=== PATIENT | male | born 1975 | race American Indian/Alaskan Native ===

== ENCOUNTER 2017-07-09 20:17 | Emergency (ER) | payer OTHER ==
[2017-07-09 20:49] VITALS: BP 132/84
[2017-07-09] MEDS ORDERED: ASPIRIN ONE (20:49)
[2017-07-09] MEDS ORDERED: ASPIRIN PO ONE (20:50)
[2017-07-09 21:19] LABS: Hemoglobin 12.5 gm/dl (11.8-15.2); Mean Corpuscular HGB Conc 34 % (32-34); Mean Corpuscular Hemoglobin 33 pg (28-32); Mean Corpuscular Volume 98 fl (84-94); Platelet Count 197 K/mm3 (140-440); Red Blood Count 3.76 M/mm3 (3.65-5.03); Red Cell Distribution Width 13.1 % (13.2-15.2)
[2017-07-09 21:38] LABS: BUN/Creatinine Ratio 13; Blood Urea Nitrogen 12 mg/dL (9-20); Calcium 9.2 mg/dL (8.4-10.2); Hemolysis Index 4
[2017-07-09 22:12] LABS: Basophils % (Manual) 0 % (0.0-1.8); Eosinophils % (Manual) 0 % (0.0-4.3); Platelet Estimate Consistent w Auto; Total Cells Counted 100
== END 2017-07-10 02:30 | disposition left against medical advice (07) ==
LOC: ED 20:17
DX: R07.89 Other chest pain (principal); Z53.21 Procedure and treatment not carried out due to patient leaving prior to being seen by health care provider
CPT/HCPCS: 36415; 80048; 84484; 85007; 85025; 93005; 93010

== ENCOUNTER 2019-12-29 10:05 | Emergency (ER) | payer OTHER ==
[2019-12-29 10:17] VITALS: BP 119/64
--- NOTE | 2019-12-29 10:48 | Event Note ---
ED Screening Note ED Screening Note: three days ago n/v/d upper abd pain no sick contacts no recent travel no recent abx no camping no water from different PMHx HIV on antivirals, states he is undetectable no allergies to meds This initial assessment/diagnostic orders/clinical plan/treatment(s) is/are subject to change based on patients health status, clinical progression and re- assessment by fellow clinical providers in the ED. Further treatment and workup at subsequent clinical providers discretion. Patient/guardian urged not to elope from the ED as their condition may be serious if not clinically assessed and managed. Initial orders include: labs
[2019-12-29 11:32] LABS: Hematocrit 39.6 % (35.5-45.6); Hemoglobin 13.8 gm/dl (11.8-15.2); Mean Corpuscular HGB Conc 35 % (32-34); Mean Corpuscular Volume 96 fl (84-94); Platelet Count 139 K/mm3 (140-440); Red Blood Count 4.14 M/mm3 (3.65-5.03); Red Cell Distribution Width 13.5 % (13.2-15.2)
[2019-12-29 11:53] LABS: Alanine Aminotransferase 12 units/L (7-56); Albumin 3.9 g/dL (3.9-5); BUN/Creatinine Ratio 16; Blood Urea Nitrogen 16 mg/dL (9-20); Calcium 9.5 mg/dL (8.4-10.2); Hemolysis Index 9
[2019-12-29 11:59] LABS: Bilirubin,Urine NEG (Negative); Blood,Urine MOD (Negative); Color,Urine Yellow (Yellow); Mucus,Urine FEW /HPF
[2019-12-29 12:09] LABS: Protein,Urine <30 mg dL mg/dL (Negative)
[2019-12-29] MEDS ORDERED: MORPHINE 4 MG/1 ML INJ IV ONE (12:13)
[2019-12-29] MEDS ORDERED: ONDANSETRON 4 MG/2 ML INJ IV ONE (12:13)
--- NOTE | 2019-12-29 12:15 | Emergency Department Report ---
ED Abdominal Pain HPI - General Chief Complaint: Abdominal Pain Stated Complaint: ABD PAIN Time Seen by Provider: 12/29/19 10:46 Source: patient Mode of arrival: Ambulatory Limitations: No Limitations - History of Present Illness Initial Comments: 44-year-old male with a past medical history of HIV presents to the ER today complaint of diffuse abdominal pain. Patient states that his symptoms started this past Friday. He described his pain as a constant crampy pain that's nonradiating. Patient states that the pain seems to be worse when he moves, but since they improve mildly when he lays supine. He reports associated nausea, he states that he has vomited about 3-4 times over the past 3 days. He also reports decreased appetite, and states that he has been having watery stools. He reports about 5 episodes of watery stools over the course of 3 days. He denies any fever but does report intermittent episodes of diaphoresis. He denies any cough, chest pain, shortness of breath, URI symptoms, or UTI symptoms. He denies similar symptoms in the past. He denies any history of abdominal surgeries. Patient states that he does not recall his last CD4 count, but he does report that his viral load was undetectable. He states that he has been compliant with his HIV medications and follow-ups with his ID specialist (Dr Nair). Complaint: abdominal pain -: Sudden (3 days ago ) Location: diffuse Radiation: none Migration to: no migration Severity: severe Severity scale (0 -10): 10 Quality: cramping Consistency: constant Improves With: other (Laying supine) Worsens With: movement Context: other (none) Associated Symptoms: nausea, vomiting, diarrhea - Related Data Home Medications Medication Instructions Recorded Confirmed Last Taken Emtricita/Rilpivirine/Tenof Df 1 each PO DAILY 11/05/13 11/05/13 Unknown [Complera Tablet] Previous Rx's Medication Instructions Recorded Last Taken Type Cyclobenzaprine [Flexeril 10mg] 10 mg PO TID PRN #14 tablet 11/05/13 Unknown Rx HYDROcodone/APAP 5-325 [[place] 1 each PO Q8HR PRN #14 tablet 11/05/13 Unknown Rx 5/325] methylPREDNISolone [Medrol Dose 4 mg PO DAILY #1 packet 11/05/13 Unknown Rx Juan J] Ondansetron [Zofran Odt] 4 mg SL Q6H PRN #8 tab.rapdis 03/01/14 Unknown Rx Ciprofloxacin HCl [Ciprofloxacin 500 mg PO Q12HR 10 Days #20 tab 12/29/19 Unknown Rx TAB] metroNIDAZOLE [Flagyl] 500 mg PO Q8HR #30 tab 12/29/19 Unknown Rx oxyCODONE /ACETAMINOPHEN [Percocet 1 tab PO Q4-6H PRN #25 tablet 12/29/19 Unknown Rx 5/325 mg] Allergies Allergy/AdvReac Type Severity Reaction Status Date / Time No Known Allergies Allergy Unverified 11/05/13 16:19 ED Review of Systems ROS: Stated complaint: ABD PAIN Other details as noted in HPI Comment: All other systems reviewed and negative Constitutional: denies: chills, fever Respiratory: denies: cough, shortness of breath, wheezing Cardiovascular: denies: chest pain, palpitations Gastrointestinal: abdominal pain, nausea, vomiting, diarrhea Genitourinary: denies: urgency, dysuria Musculoskeletal: denies: back pain, joint swelling, arthralgia Skin: denies: rash, lesions Neurological: denies: headache, weakness, paresthesias ED Past Medical Hx - Past Medical History Previous Medical History?: Yes Hx HIV: Yes - Social History Smoking Status: Never Smoker Substance Use Type: None - Medications Home Medications: Home Medications Medication Instructions Recorded Confirmed Last Taken Type Cyclobenzaprine [Flexeril 10mg] 10 mg PO TID PRN #14 tablet 11/05/13 Unknown Rx Emtricita/Rilpivirine/Tenof Df 1 each PO DAILY 11/05/13 11/05/13 Unknown History [Complera Tablet] HYDROcodone/APAP 5-325 [[place] 1 each PO Q8HR PRN #14 tablet 11/05/13 Unknown Rx 5/325] methylPREDNISolone [Medrol Dose 4 mg PO DAILY #1 packet 11/05/13 Unknown Rx Juan J] Ondansetron [Zofran Odt] 4 mg SL Q6H PRN #8 tab.rapdis 03/01/14 Unknown Rx Ciprofloxacin HCl [Ciprofloxacin 500 mg PO Q12HR 10 Days #20 tab 12/29/19 Unknown Rx TAB] metroNIDAZOLE [Flagyl] 500 mg PO Q8HR #30 tab 12/29/19 Unknown Rx oxyCODONE /ACETAMINOPHEN [Percocet 1 tab PO Q4-6H PRN #25 tablet 12/29/19 Unknown Rx 5/325 mg] ED Physical Exam - General Limitations: No Limitations General appearance: alert, in no apparent distress - Head Head exam: Present: atraumatic, normocephalic, normal inspection - Eye Eye exam: Present: normal appearance, PERRL, EOMI Pupils: Present: normal accommodation - ENT ENT exam: Present: normal exam, mucous membranes moist - Neck Neck exam: Present: normal inspection - Respiratory Respiratory exam: Absent: respiratory distress - Cardiovascular Cardiovascular Exam: Present: normal rhythm. Absent: regular rate - GI/Abdominal GI/Abdominal exam: Present: soft, tenderness (Moderate tenderness palpation to the left upper quadrant and left lower quadrant but with some mild guarding with the left lower quadrant. No apparent rebound. No distention. No mass or rigidity noted.). Absent: distended - Back Exam Back exam: Present: full ROM - Neurological Exam Neurological exam: Present: alert, oriented X3, CN II-XII intact - Psychiatric Psychiatric exam: Present: normal affect, normal mood - Skin Skin exam: Present: intact ED Course Vital Signs 12/29/19 10:16 Temperature 98.4 F Pulse Rate 94 H Respiratory 20 Rate Blood Pressure 119/64 [Right] O2 Sat by Pulse 99 Oximetry ED Medical Decision Making - Lab Data Result diagrams: 12/29/19 11:13 12/29/19 11:13 - Radiology Data Radiology results: report reviewed - Medical Decision Making 1643 -- Patient currently resting comfortably. Labs/CT reviewed. CT shows 1. Mural thickening and mucosal enhancement of the descending colon, most compatible with infectious or inflammatory colitis. 2. Mild wall thickening and mild inflammatory stranding involving the rectum, may represent component of proctitis. CBC shows nl wbc, cmp nl, ua nl, pt vs are stable including that he is afebrile. Pt does not appear toxic or ill appearing and currently not in any distress. Discussed results with patient. He report having seeing GI specialist at [facility] 3 years ago for colonoscopy because at that time he was having rectal bleeding. He states that his colonoscopy done was normal. At this time I believe we can try outpatient treatment with some antibiotics and outpatient referral to GI for colonoscopy. There is no indication for admission or emergent consult at this time. But I did discuss with patient that if he starts having fever, worsening abdominal pain worsening diarrhea and starts developing bloody stools needs to return to the ER immediately. Patient expressed understanding of instructions and agrees with plan. Patient was stable at time of discharge. Critical care attestation.: If time is entered above; I have spent that time in minutes in the direct care of this critically ill patient, excluding procedure time. ED Disposition Clinical Impression: Colitis Disposition: DC- TO HOME OR SELFCARE Is pt being admited?: No Does the pt Need Aspirin: No Condition: Stable Instructions: Colitis, Proctitis Additional Instructions: I recommend that you take the antibiotics as prescribed. Also take the pain medications as prescribed. I recommend that you follow up with GI specialist (the one you saw 3 yrs ago or the one given on d/c instructions) for further evaluation and possible colonoscopy. Return to ED if you develop fever, bloody or mucous stools, worsening abdominal pain. Prescriptions: Ciprofloxacin HCl [Ciprofloxacin TAB] 500 mg PO Q12HR 10 Days #20 tab metroNIDAZOLE [Flagyl] 500 mg PO Q8HR #30 tab oxyCODONE /ACETAMINOPHEN [Percocet 5/325 mg] 1 tab PO Q4-6H PRN #25 tablet PRN Reason: Pain Referrals: [facility] [Provider Group] - 3-5 Days Forms: Work/School Release Form(ED) Time of Disposition: 16:39
[2019-12-29 12:19] LABS: Total Cells Counted 100
[2019-12-29 12:21] LABS: Band Neutrophils # (Manual) 1.2 K/mm3; Basophils % (Manual) 0 % (0.0-1.8); Eosinophils % (Manual) 0 % (0.0-4.3)
[2019-12-29 12:22] LABS: Platelet Estimate Consistent w Auto; RBC Morphology Normal
[2019-12-29] MEDS ORDERED: metroNIDAZOLE 500 MG TAB PO ONE (16:40)
[2019-12-29] MEDS ORDERED: levoFLOXacin 750 MG TAB PO ONE (16:40)
[2019-12-29] MEDS ORDERED: oxyCODONE /ACETAMINOPHEN 5-325MG TAB PO PRN (16:40)
--- NOTE | 2019-12-31 12:04 | Cat Scan Report ---
CT ABDOMEN AND PELVIS WITH CONTRAST INDICATION / CLINICAL INFORMATION: Pain. TECHNIQUE: Axial CT images were obtained through the abdomen and pelvis after 100 mL of Omnipaque [address] scans at this location are performed using CT dose reduction for ALARA by means of automated exposure control. COMPARISON: 03/01/2014. FINDINGS: LOWER CHEST: Unremarkable LIVER: Small cyst seen near the hepatic dome. GALLBLADDER/BILIARY TREE: Unremarkable PANCREAS: Unremarkable SPLEEN: Unremarkable ADRENALS: Unremarkable KIDNEYS / URETER: Unremarkable URINARY BLADDER: Unremarkable REPRODUCTIVE ORGANS: Unremarkable STOMACH / SMALL BOWEL: Stomach and small bowel are normal in caliber. No evidence of bowel inflammati on. COLON: There is mural thickening and mucosal enhancement involving the descending colon, extending fr om the splenic flexure to the proximal sigmoid. There is also wall thickening of the rectum with julio cent inflammatory stranding. No evidence of obstruction. The appendix is normal in caliber. LYMPH NODES: No significant adenopathy. VASCULATURE: No significant abnormality. OTHER: No free air, free fluid, or focal fluid collection is identified. SKELETAL SYSTEM: No acute osseous findings. IMPRESSION: 1. Mural thickening and mucosal enhancement of the descending colon, most compatible with infectious or inflammatory colitis. 2. Mild wall thickening and mild inflammatory stranding involving the rectum, may represent component of proctitis. Signer Name: Pino Caro MD Signed: 12/29/2019 2:55 PM Workstation Name: [id number]
== END 2019-12-29 17:05 | disposition home or self-care (01) ==
LOC: ED 10:05
DX: K52.9 Noninfective gastroenteritis and colitis, unspecified (principal); Z79.2 Long term (current) use of antibiotics; Z79.899 Other long term (current) drug therapy; Z21 Asymptomatic human immunodeficiency virus [HIV] infection status
CPT/HCPCS: 36415; 74177; 80053; 81001; 83690; 85007; 85025; 96374; 96375; 99284; J2270; J2405; Q9967

== ENCOUNTER 2020-04-11 04:53 | Emergency (ER) | payer OTHER ==
[2020-04-11 06:31] LABS: Basophils % (Auto) 0.3 % (0.0-1.8); Eosinophils % (Auto) 0.8 % (0.0-4.3); Hematocrit 37.4 % (35.5-45.6); Hemoglobin 12.8 gm/dl (11.8-15.2); Lymphocytes # (Auto) 1.6 K/mm3 (1.2-5.4); Lymphocytes % (Auto) 41.5 % (13.4-35.0); Mean Corpuscular HGB Conc 34 % (32-34); Mean Corpuscular Volume 99 fl (84-94); Monocytes # (Auto) 0.4 K/mm3 (0.0-0.8); Monocytes % (Auto) 11.6 % (0.0-7.3); Platelet Count 163 K/mm3 (140-440); Red Blood Count 3.76 M/mm3 (3.65-5.03); Red Cell Distribution Width 13.2 % (13.2-15.2)
[2020-04-11 06:45] LABS: Alanine Aminotransferase 9 units/L (7-56); Albumin 4.4 g/dL (3.9-5); BUN/Creatinine Ratio 14; Blood Urea Nitrogen 14 mg/dL (9-20); Hemolysis Index 1
[2020-04-11] MEDS ORDERED: MECLIZINE 25 MG TAB PO ONE (08:55)
--- NOTE | 2020-04-11 08:56 | Emergency Department Report ---
ED Dizziness HPI - General Chief Complaint: Dizziness Stated Complaint: DIZZINESS/FEELING ILL Time Seen by Provider: 04/11/20 08:46 Source: patient Mode of arrival: Ambulatory Limitations: No Limitations - History of Present Illness Initial Comments: 44-year-old male with a past medical history of HIV with undetectable viral load presents to the hospital complains of feeling off balance x3 days. Patient feels like the room is spinning when he stands up or moves his head in either direction. He denies blurry vision, tinnitus, ear pain, chest pain, shortness of breath, headache, focal weakness, focal numbness, nausea, vomiting, or diarrhea. He is compliant with his antiretrovirals and denies any medication - Related Data Home Medications Medication Instructions Recorded Confirmed Last Taken Emtricita/Rilpivirine/Tenof Df 1 each PO DAILY 11/05/13 11/05/13 Unknown [Complera Tablet] Previous Rx's Medication Instructions Recorded Last Taken Type Cyclobenzaprine [Flexeril 10mg] 10 mg PO TID PRN #14 tablet 11/05/13 Unknown Rx HYDROcodone/APAP 5-325 [[place] 1 each PO Q8HR PRN #14 tablet 11/05/13 Unknown Rx 5/325] methylPREDNISolone [Medrol Dose 4 mg PO DAILY #1 packet 11/05/13 Unknown Rx Juan J] Ondansetron [Zofran Odt] 4 mg SL Q6H PRN #8 tab.rapdis 03/01/14 Unknown Rx Ciprofloxacin HCl [Ciprofloxacin 500 mg PO Q12HR 10 Days #20 tab 12/29/19 Unk nown Rx TAB] metroNIDAZOLE [Flagyl] 500 mg PO Q8HR #30 tab 12/29/19 Unknown Rx oxyCODONE /ACETAMINOPHEN [Percocet 1 tab PO Q4-6H PRN #25 tablet 12/29/19 Unknown Rx 5/325 mg] Meclizine [Antivert] 25 mg PO TID PRN #30 tablet 04/11/20 Unknown Rx Ondansetron [Zofran Odt] 4 mg PO Q8HR #20 tab.rapdis 04/11/20 Unknown Rx Allergies Allergy/AdvReac Type Severity Reaction Status Date / Time No Known Allergies Allergy Verified 04/11/20 05:05 ED Review of Systems ROS: Stated complaint: DIZZINESS/FEELING ILL Other details as noted in HPI Comment: All other systems reviewed and negative ED Past Medical Hx - Past Medical History Previous Medical History?: Yes Hx HIV: Yes - Surgical History Past Surgical History?: No - Social History Smoking Status: Current Every Day Smoker Substance Use Type: Alcohol, Marijuana - Medications Home Medications: Home Medications Medication Instructions Recorded Confirmed Last Taken Type Cyclobenzaprine [Flexeril 10mg] 10 mg PO TID PRN #14 tablet 11/05/13 Unknown Rx Emtricita/Rilpivirine/Tenof Df 1 each PO DAILY 11/05/13 11/05/13 Unknown History [Complera Tablet] HYDROcodone/APAP 5-325 [[place] 1 each PO Q8HR PRN #14 tablet 11/05/13 Unknown Rx 5/325] methylPREDNISolone [Medrol Dose 4 mg PO DAILY #1 packet 11/05/13 Unknown Rx Juan J] Ondansetron [Zofran Odt] 4 mg SL Q6H PRN #8 tab.rapdis 03/01/14 Unknown Rx Ciprofloxacin HCl [Ciprofloxacin 500 mg PO Q12HR 10 Days #20 tab 12/29/19 Unknown Rx TAB] metroNIDAZOLE [Flagyl] 500 mg PO Q8HR #30 tab 12/29/19 Unknown Rx oxyCODONE /ACETAMINOPHEN [Percocet 1 tab PO Q4-6H PRN #25 tablet 12/29/19 Unknown Rx 5/325 mg] Meclizine [Antivert] 25 mg PO TID PRN #30 tablet 04/11/20 Unknown Rx Ondansetron [Zofran Odt] 4 mg PO Q8HR #20 tab.rapdis 04/11/20 Unknown Rx ED Physical Exam - General Limitations: No Limitations - Other Other exam information: General: No acute distress Head: Atraumatic Eyes: normal appearance, no nystagmus, dizziness with lateral eye gaze ENT: Moist mucous membranes Neck: Normal appearance, no midline tenderness Chest: Clear to auscultation bilaterally CV: Regular rate and rhythm Abdomen: Soft, normal bowel sounds, nontender, nondistended, no rebound or guarding Back: Normal inspection Extremity: Normal inspection, full range of motion Neuro: Alert O x 3, no facial asymmetry, speech clear, no gross motor sensory deficit, [id number] function intact Psych: Appropriate behavior Skin: No rash ED Course Vital Signs 04/11/20 04/11/20 04/11/20 05:06 05:12 08:51 Temperature 97.8 F Pulse Rate 75 74 69 Respiratory 16 22 Rate Blood Pressure Blood Pressure [Left] Blood Pressure 141/94 [Right] O2 Sat by Pulse 95 98 Oximetry 04/11/20 04/11/20 04/11/20 09:01 09:15 09:21 Temperature Pulse Rate 63 62 Respiratory 10 L 8 L 18 Rate Blood Pressure Blood Pressure 130/85 [Left] Blood Pressure [Right] O2 Sat by Pulse 98 96 Oximetry 04/11/20 04/11/20 04/11/20 09:31 10:15 11:15 Temperature Pulse Rate 66 56 L 62 Respiratory 14 17 10 L Rate Blood Pressure 130/85 124/71 129/90 Blood Pressure [Left] Blood Pressure [Right] O2 Sat by Pulse 96 97 97 Oximetry 04/11/20 13:12 Temperature Pulse Rate 61 Respiratory 12 Rate Blood Pressure Blood Pressure 122/93 [Left] Blood Pressure [Right] O2 Sat by Pulse 100 Oximetry - Reevaluation(s) Reevaluation #1: 04/11/20 10:46 after meclizine 50 mg pt complains of persistent dizziness. CT head and IV fluids ordered ED Medical Decision Making - Lab Data Result diagrams: 04/11/20 05:25 04/11/20 05:25 Lab Results 04/11/20 04/11/20 04/11/20 Range/Units 05:25 05:25 05:25 WBC 3.8 L (4.5-11.0) K/mm3 RBC 3.76 (3.65-5.03) M/mm3 Hgb 12.8 (11.8-15.2) gm/dl Hct 37.4 (35.5-45.6) % MCV 99 H (84-94) fl MCH 34 H (28-32) pg MCHC 34 (32-34) % RDW 13.2 (13.2-15.2) % Plt Count 163 (140-440) K/mm3 Lymph % (Auto) 41.5 H (13.4-35.0) % [place] % (Auto) 11.6 H (0.0-7.3) % Eos % (Auto) 0.8 (0.0-4.3) % Baso % (Auto) 0.3 (0.0-1.8) % Lymph # (Auto) 1.6 (1.2-5.4) K/mm3 [place] # (Auto) 0.4 (0.0-0.8) K/mm3 Eos # (Auto) 0.0 (0.0-0.4) K/mm3 Baso # (Auto) 0.0 (0.0-0.1) K/mm3 Seg Neutrophils % 45.8 (40.0-70.0) % Seg Neutrophils # 1.8 (1.8-7.7) K/mm3 Sodium 139 (137-145) mmol/L Potassium 3.6 (3.6-5.0) mmol/L Chloride 106.4 (98-107) mmol/L Carbon Dioxide 24 (22-30) mmol/L Anion Gap 12 mmol/L BUN 14 (9-20) mg/dL Creatinine 1.0 (0.8-1.3) mg/dL Estimated GFR > 60 ml/min BUN/Creatinine Ratio 14 % Glucose 88 (75-100) mg/dL Calcium 9.0 (8.4-10.2) mg/dL Total Bilirubin 0.30 (0.1-1.2) mg/dL AST 18 (5-40) units/L ALT 9 (7-56) units/L Alkaline Phosphatase 60 (35-129) units/L Troponin T < 0.010 (0.00-0.029) ng/mL Total Protein 8.1 (6.3-8.2) g/dL Albumin 4.4 (3.9-5) g/dL Albumin/Globulin Ratio 1.2 % - EKG Data -: EKG Interpreted by Me EKG shows normal: sinus rhythm, ST-T waves (no stemi) Rate: normal (70) - Radiology Data Radiology results: report reviewed ct head:naf - Medical Decision Making Patient feels better after receiving meclizine and [address] head and labs unremarkable. Patient be discharged with diagnosis of vertigo and encouraged to follow-up and provided symptomatic treatment. Pt able to sit up and ambulate at time of discharge. Patient is on Biktarvy which does have the side effect of dizziness however pt has been on this med or quite sometime. I encouraged him to speak to his infectious disease doctor about Biktarvy because in his possible side effect. Critical Care Time: No Critical care attestation.: If time is entered above; I have spent that time in minutes in the direct care of this critically ill patient, excluding procedure time. ED Disposition Clinical Impression: Vertigo, HIV (human immunodeficiency virus infection) Disposition: DC-01 TO HOME OR SELFCARE Is pt being admited?: No Does the pt Need Aspirin: No Condition: Stable Instructions: Vertigo Additional Instructions: Take the medication as prescribed. Follow-up with your doctor or doctor/clinic provided. Return if symptoms worsen as indicated by your discharge instructions. Prescriptions: Meclizine [Antivert] 25 mg PO TID PRN #30 tablet PRN Reason: Vertigo Ondansetron [Zofran Odt] 4 mg PO Q8HR #20 tab.rapdis Referrals: MESERET SMALLS MD [Primary Care Provider] - 3-5 Days JANICE VAZQUEZ MD [Referring] - 3-5 Days (ENT ) LIV SHRESTHA MD [Staff Physician] - 3-5 Days (Primary care ) [facility] [Provider Group] - 3-5 Days (primary care clinic ) Time of Disposition: 13:50
[2020-04-11] MEDS ORDERED: SODIUM CHLORIDE 0.9% 1000 ML 1,000 ML IV ONE (10:46)
--- NOTE | 2020-04-11 11:48 | Cat Scan Report ---
CT HEAD WITHOUT CONTRAST INDICATION / CLINICAL INFORMATION: persitant dizziness. Syncope TECHNIQUE: Axial imaging performed from the skull apex through the skull base without the use of cont rast. Sagittal and coronal reformatted images. All CT scans at this location are performed using CT dose reduction for ALARA by means of automated exposure control. COMPARISON: None available. FINDINGS: CEREBRAL PARENCHYMA: No significant abnormality. No acute territorial infarct. HEMORRHAGE: None. EXTRA-AXIAL SPACES: Normal in size and morphology for the patient's age. VENTRICULAR SYSTEM: Normal in size and morphology for the patient's age. MIDLINE SHIFT OR HERNIATION: None. CEREBELLUM / BRAINSTEM: No significant abnormality. CALVARIUM: No significant abnormality. ORBITS: Normal as visualized. PARANASAL SINUSES / MASTOID AIR CELLS: Normal as visualized. SOFT TISSUES of HEAD: No significant abnormality. ADDITIONAL FINDINGS: None. IMPRESSION: No acute intracranial abnormality. Signer Name: Steven Barber Jr, MD Signed: 04/11/2020 11:34 AM Workstation Name: [id number]
[2020-04-11 13:14] VITALS: BP 122/93
== END 2020-04-11 14:46 | disposition home or self-care (01) ==
LOC: ED 04:53
DX: R42 Dizziness and giddiness (principal); B20 Human immunodeficiency virus [HIV] disease; F17.200 Nicotine dependence, unspecified, uncomplicated; F12.10 Cannabis abuse, uncomplicated; Z79.899 Other long term (current) drug therapy
CPT/HCPCS: 36415; 70450; 80053; 84484; 85025; 93005; 96360; 96361; 99284; J7030

== ENCOUNTER 2020-04-13 05:49 | Emergency (ER) | payer OTHER ==
--- NOTE | 2020-04-13 06:30 | Emergency Department Report ---
ED General Adult HPI - General Chief complaint: Dizziness Stated complaint: VERTIGO Time Seen by Provider: 04/13/20 06:08 Source: patient Mode of arrival: Ambulatory Limitations: No Limitations - History of Present Illness Initial comments: This is a 44-year-old male with a history of HIV who has stated he has a negative viral load and has been compliant with his at the retroviral therapy. He was seen and evaluated for dizziness now for 1 week duration and secondary difficulty in walking [address] Limon in this emergency department. Nothing specifically expected to have was found on his work-up. He was directed to follow-up with his infectious disease doctor in case his symptoms were medication related. He neglected to do so. To return to this emergency department with the same complaint. He is somewhat emotionally labile. He does not admit to a psychiatric history nor related medications. He does admit to marijuana and cocaine abuse. He only occasionally drinks alcohol on the weekends. Patient states that he has never been hospitalized for anything. He has never suffered a serious secondary infectious disease throughout his 15-year history of HIV he states. He denies any other ongoing medical problems. He denies any new medications. He denies any pain complaint. -: Gradual, week(s) Associated Symptoms: denies other symptoms, other (Denies loss of taste or smell ) Treatments Prior to Arrival: none (Meclizine) - Related Data Home Medications Medication Instructions Recorded Confirmed Last Taken Emtricita/Rilpivirine/Tenof Df 1 each PO DAILY 11/05/13 11/05/13 Unknown [Complera Tablet] Previous Rx's Medication Instructions Recorded Last Taken Type Cyclobenzaprine [Flexeril 10mg] 10 mg PO TID PRN #14 tablet 11/05/13 Unknown Rx HYDROcodone/APAP 5-325 [Louisa 1 each PO Q8HR PRN #14 tablet 11/05/13 Unknown Rx 5/325] methylPREDNISolone [Medrol Dose 4 mg PO DAILY #1 packet 11/05/13 Unknown Rx Ujan J] Ondansetron [Zofran Odt] 4 mg SL Q6H PRN #8 tab.rapdis 03/01/14 Unknown Rx Ciprofloxacin HCl [Ciprofloxacin 500 mg PO Q12HR 10 Days #20 tab 12/29/19 Unknown Rx TAB] metroNIDAZOLE [Flagyl] 500 mg PO Q8HR #30 tab 12/29/19 Unknown Rx oxyCODONE /ACETAMINOPHEN [Percocet 1 tab PO Q4-6H PRN #25 tablet 12/29/19 Unknown Rx 5/325 mg] Meclizine [Antivert] 25 mg PO TID PRN #30 tablet 04/11/20 Unknown Rx Ondansetron [Zofran Odt] 4 mg PO Q8HR #20 tab.rapdis 04/11/20 Unknown Rx Allergies Allergy/AdvReac Type Severity Reaction Status Date / Time No Known Allergies Allergy Verified 04/11/20 05:05 ED Review of Systems ROS: Stated complaint: VERTIGO Other details as noted in HPI Constitutional: denies: chills, fever Eyes: denies: eye pain, vision change ENT: denies: ear pain, throat pain Respiratory: denies: cough, shortness of breath, wheezing Cardiovascular: denies: chest pain, palpitations Endocrine: no symptoms reported Gastrointestinal: denies: abdominal pain, nausea, diarrhea Genitourinary: denies: urgency, dysuria Musculoskeletal: denies: back pain, arthralgia Skin: denies: rash, lesions Neurological: denies: headache, weakness, paresthesias Psychiatric: denies: anxiety, depression Hematological/Lymphatic: denies: easy bleeding, easy bruising ED Past Medical Hx - Past Medical History Previous Medical History?: Yes Hx HIV: Yes Additional medical history: Vertigo - Social History Smoking Status: Current Every Day Smoker Substance Use Type: Cocaine, Marijuana - Medications Home Medications: Home Medications Medication Instructions Recorded Confirmed Last Taken Type Cyclobenzaprine [Flexeril 10mg] 10 mg PO TID PRN #14 tablet 11/05/13 Unknown Rx Emtricita/Rilpivirine/Tenof Df 1 each PO DAILY 11/05/13 11/05/13 Unknown History [Complera Tablet] HYDROcodone/APAP 5-325 [[place] 1 each PO Q8HR PRN #14 tablet 11/05/13 Unknown Rx 5/325] methylPREDNISolone [Medrol Dose 4 mg PO DAILY #1 packet 11/05/13 Unknown Rx Juan J] Ondansetron [Zofran Odt] 4 mg SL Q6H PRN #8 tab.rapdis 03/01/14 Unknown Rx Ciprofloxacin HCl [Ciprofloxacin 500 mg PO Q12HR 10 Days #20 tab 12/29/19 Unknown Rx TAB] metroNIDAZOLE [Flagyl] 500 mg PO Q8HR #30 tab 12/29/19 Unknown Rx oxyCODONE /ACETAMINOPHEN [Percocet 1 tab PO Q4-6H PRN #25 tablet 12/29/19 Unknown Rx 5/325 mg] Meclizine [Antivert] 25 mg PO TID PRN #30 tablet 04/11/20 Unknown Rx Ondansetron [Zofran Odt] 4 mg PO Q8HR #20 tab.rapdis 04/11/20 Unknown Rx ED Physical Exam - General Limitations: No Limitations General appearance: alert, in no apparent distress - Head Head exam: Present: atraumatic, normocephalic - Eye Eye exam: Present: normal appearance. Absent: scleral icterus - ENT ENT exam: Present: mucous membranes moist - Neck Neck exam: Present: normal inspection - Respiratory Respiratory exam: Present: normal lung sounds bilaterally. Absent: respiratory distress - Cardiovascular Cardiovascular Exam: Present: regular rate, normal rhythm. Absent: systolic murmur, diastolic murmur, rubs, gallop - GI/Abdominal GI/Abdominal exam: Present: soft, normal bowel sounds. Absent: distended, tenderness, guarding, rebound - Rectal Rectal exam: Present: deferred - Extremities Exam Extremities exam: Present: normal inspection - Back Exam Back exam: Present: normal inspection - Neurological Exam Neurological exam: Present: alert, oriented X3, CN II-XII intact, normal gait (Taking very short but not shuffling or ataxic gait). Absent: motor sensory deficit - Psychiatric Psychiatric exam: Present: depressed, anxious, other (Tearful) - Skin Skin exam: Present: warm, dry, intact, normal color. Absent: rash ED Course Vital Signs 04/13/20 04/13/20 04/13/20 05:56 06:53 06:54 Temperature 98.7 F Pulse Rate 72 64 66 Respiratory 16 8 L 10 L Rate Blood Pressure 120/90 O2 Sat by Pulse 99 98 100 Oximetry 04/13/20 04/13/20 04/13/20 06:55 06:57 07:01 Temperature Pulse Rate 68 58 L 58 L Respiratory 12 27 H 16 Rate Blood Pressure 126/85 126/85 126/85 O2 Sat by Pulse 96 97 97 Oximetry 04/13/20 04/13/20 04/13/20 07:15 07:31 07:45 Temperature Pulse Rate 58 L 58 L 57 L Respiratory 14 16 21 Rate Blood Pressure 118/81 118/81 119/83 O2 Sat by Pulse 97 96 97 Oximetry - Reevaluation(s) Reevaluation #1: Patient resting comfortably and asymptomatic. He does seem to respond well to the Ativan. His MRI was normal. He is directed back to his IDC to discuss his symptoms and the possible relationship of his HIV medication. He was counseled concerning his polysubstance abuse. 04/13/20 10:38 ED Medical Decision Making - Lab Data Result diagrams: 04/13/20 Unknown 04/13/20 Unknown Laboratory Results - last 24 hr 04/13/20 04/13/20 04/13/20 06:29 06:29 07:43 WBC RBC Hgb Hct MCV MCH MCHC RDW Plt Count Lymph % (Auto) Dewitt % (Auto) Eos % (Auto) Baso % (Auto) Lymph # (Auto) Dewitt # (Auto) Eos # (Auto) Baso # (Auto) Seg Neutrophils % Seg Neutrophils # PT INR APTT Sodium Potassium Chloride Carbon Dioxide Anion Gap BUN Creatinine Estimated GFR BUN/Creatinine Ratio Glucose Calcium Magnesium Total Bilirubin Direct Bilirubin Indirect Bilirubin AST ALT Alkaline Phosphatase Ammonia 38.0 Total Creatine Kinase CK-MB (CK-2) CK-MB (CK-2) Rel Index Total Protein Albumin Albumin/Globulin Ratio Urine Color Yellow Urine Turbidity Clear Urine pH 5.0 Ur Specific [place] 1.021 Urine Protein <15 mg/dl Urine Glucose (UA) Neg Urine Ketones Neg Urine Blood Neg Urine Nitrite Neg Urine Bilirubin Neg Urine Urobilinogen 2.0 Ur Leukocyte Esterase Neg Urine WBC (Auto) < 1.0 Urine RBC (Auto) < 1.0 U Epithel Cells (Auto) < 1.0 Urine Mucus 3+ Urine Opiates Screen Presumptive negative Urine Methadone Screen Presumptive negative Ur Barbiturates Screen Presumptive negative Ur Phencyclidine Scrn Presumptive negative Ur Amphetamines Screen Presumptive negative U Benzodiazepines Scrn Presumptive negative Urine Cocaine Screen Presumptive positive U Marijuana (THC) Screen Presumptive positive Drugs of Abuse Note Disclamer 04/13/20 04/13/20 04/13/20 Unknown Unknown Unknown WBC 3.5 L RBC 4.12 Hgb 13.9 Hct 40.6 MCV 99 H MCH 34 H MCHC 34 RDW 13.0 L Plt Count 166 Lymph % (Auto) 46.1 H Dewitt % (Auto) 12.0 H Eos % (Auto) 0.9 Baso % (Auto) 0.3 Lymph # (Auto) 1.6 Dewitt # (Auto) 0.4 Eos # (Auto) 0.0 Baso # (Auto) 0.0 Seg Neutrophils % 40.7 Seg Neutrophils # 1.4 L PT 12.8 INR 0.98 APTT 29.1 Sodium 141 Potassium 4.1 Chloride 105.6 Carbon Dioxide 28 Anion Gap 12 BUN 15 Creatinine 1.2 Estimated GFR > 60 BUN/Creatinine Ratio 13 Glucose 91 Calcium 9.7 Magnesium Total Bilirubin Direct Bilirubin Indirect Bilirubin AST ALT Alkaline Phosphatase Ammonia Total Creatine Kinase 98 CK-MB (CK-2) < 1.0 CK-MB (CK-2) Rel Index 1.0 Total Protein Albumin Albumin/Globulin Ratio Urine Color Urine Turbidity Urine pH Ur Specific [place] Urine Protein Urine Glucose (UA) Urine Ketones Urine Blood Urine Nitrite Urine Bilirubin Urine Urobilinogen Ur Leukocyte Esterase Urine WBC (Auto) Urine RBC (Auto) U Epithel Cells (Auto) Urine Mucus Urine Opiates Screen Urine Methadone Screen Ur Barbiturates Screen Ur Phencyclidine Scrn Ur Amphetamines Screen U Benzodiazepines Scrn Urine Cocaine Screen U Marijuana (THC) Screen Drugs of Abuse Note 04/13/20 Unknown WBC RBC Hgb Hct MCV MCH MCHC RDW Plt Count Lymph % (Auto) Dewitt % (Auto) Eos % (Auto) Baso % (Auto) Lymph # (Auto) Dewitt # (Auto) Eos # (Auto) Baso # (Auto) Seg Neutrophils % Seg Neutrophils # PT INR APTT Sodium Potassium Chloride Carbon Dioxide Anion Gap BUN Creatinine Estimated GFR BUN/Creatinine Ratio Glucose Calcium Magnesium 2.30 Total Bilirubin 0.40 Direct Bilirubin < 0.2 Indirect Bilirubin 0.2 AST 25 ALT 6 L Alkaline Phosphatase 66 Ammonia Total Creatine Kinase CK-MB (CK-2) CK-MB (CK-2) Rel Index Total Protein 8.2 Albumin 4.7 Albumin/Globulin Ratio 1.3 Urine Color Urine Turbidity Urine pH Ur Specific [place] Urine Protein Urine Glucose (UA) Urine Ketones Urine Blood Urine Nitrite Urine Bilirubin Urine Urobilinogen Ur Leukocyte Esterase Urine WBC (Auto) Urine RBC (Auto) U Epithel Cells (Auto) Urine Mucus Urine Opiates Screen Urine Methadone Screen Ur Barbiturates Screen Ur Phencyclidine Scrn Ur Amphetamines Screen U Benzodiazepines Scrn Urine Cocaine Screen U Marijuana (THC) Screen Drugs of Abuse Note - EKG Data -: EKG Interpreted by Me EKG shows normal: sinus rhythm, axis, intervals, QRS complexes, ST-T waves Rate: bradycardia - EKG Data Interpretation: other Increased voltage. 04/13/20 09:07 Critical care attestation.: If time is entered above; I have spent that time in minutes in the direct care of this critically ill patient, excluding procedure time. ED Disposition Clinical Impression: Vertigo, Polysubstance abuse HIV (human immunodeficiency virus infection) Qualifiers: HIV symptom status: unspecified Qualified Code(s): B20 - Human immunodeficiency virus [HIV] disease Disposition: DC-01 TO HOME OR SELFCARE Is pt being admited?: No Does the pt Need Aspirin: No Condition: Stable Instructions: Dizziness, [id number] Additional Instructions: Follow-up with your primary care/ID see doctors. Return any acute change or problem. Referrals: PRIMARY CARE,MD [Primary Care Provider] - 3-5 Days Usual, medical providers/[facility] [Other] - [facility] Time of Disposition: 10:39
[2020-04-13] MEDS ORDERED: LORazepam 1 MG TAB PO ONE (06:32)
[2020-04-13 06:40] LABS: Basophils % (Auto) 0.3 % (0.0-1.8); Eosinophils % (Auto) 0.9 % (0.0-4.3); Hematocrit 40.6 % (35.5-45.6); Hemoglobin 13.9 gm/dl (11.8-15.2); Lymphocytes # (Auto) 1.6 K/mm3 (1.2-5.4); Lymphocytes % (Auto) 46.1 % (13.4-35.0); Mean Corpuscular HGB Conc 34 % (32-34); Mean Corpuscular Volume 99 fl (84-94); Monocytes # (Auto) 0.4 K/mm3 (0.0-0.8); Platelet Count 166 K/mm3 (140-440); Red Blood Count 4.12 M/mm3 (3.65-5.03)
[2020-04-13 06:46] LABS: INR 0.98 (0.87-1.13)
[2020-04-13 06:47] LABS: Partial Thromboplastin Time 29.1 Sec. (24.2-36.6)
[2020-04-13 06:56] LABS: Alanine Aminotransferase 6 units/L (7-56); Albumin 4.7 g/dL (3.9-5)
[2020-04-13 06:59] LABS: Bilirubin,Direct < 0.2 mg/dL (0-0.2); Creatine Kinase MB < 1.0 ng/mL (0.0-4.0)
[2020-04-13 07:01] LABS: BUN/Creatinine Ratio 13; Blood Urea Nitrogen 15 mg/dL (9-20); Calcium 9.7 mg/dL (8.4-10.2); Hemolysis Index 64
[2020-04-13 07:19] LABS: Amphetamine Screen,Urine PRESUMPTIVE NEGATIVE; Benzodiazepines Screen,Urine PRESUMPTIVE NEGATIVE; Cannabinoid Screen,Urine PRESUMPTIVE POSITIVE; Cocaine Screen,Urine PRESUMPTIVE POSITIVE; Methadone Screen,Urine PRESUMPTIVE NEGATIVE; Opiate Screen,Urine PRESUMPTIVE NEGATIVE
[2020-04-13 07:24] LABS: Bilirubin,Urine NEG (Negative); Blood,Urine NEG (Negative); Color,Urine Yellow (Yellow); Mucus,Urine 3+ /HPF; Protein,Urine <15 mg/dL mg/dL (Negative); WBC,Urine < 1.0 /HPF (0.0-6.0)
[2020-04-13 08:00] VITALS: BP 119/83
[2020-04-13 08:09] LABS: RBC,Urine < 1.0 /HPF (0.0-6.0)
--- NOTE | 2020-04-13 09:36 | Magnetic Resonance Report ---
. MR brain wo con INDICATION / CLINICAL INFORMATION: 44 years Male; Persistent gait disturbance, HIV. TECHNIQUE: Multiplanar, multisequence MR images of the brain were obtained. COMPARISON: None available. FINDINGS: BRAIN / INTRACRANIAL CONTENTS: The brain demonstrate appropriate signal characteristics. The ventricu lar system is within normal limits in size and configuration. No extra-axial fluid collections or sig nificant mass effect is identified. The diffusion imaging is unremarkable without evidence of recent infarction. CRANIOCERVICAL JUNCTION: No significant abnormality. VASCULAR FLOW-VOIDS: No significant abnormality. ORBITS: No significant abnormality of visualized orbits. SINUSES / MASTOIDS: No significant abnormality in the visualized paranasal sinuses or mastoid air deanna ls. ADDITIONAL FINDINGS: None. IMPRESSION: 1. The MRI of the brain is unremarkable without evidence of recent infarction or acute intracranial p rocess. Signer Name: Yobani Trammell MD Signed: 04/13/2020 9:31 AM Workstation Name: [id number]
== END 2020-04-13 11:11 | disposition home or self-care (01) ==
LOC: ED 05:49
DX: F19.10 Other psychoactive substance abuse, uncomplicated (principal); B20 Human immunodeficiency virus [HIV] disease; R42 Dizziness and giddiness; F17.200 Nicotine dependence, unspecified, uncomplicated; F12.10 Cannabis abuse, uncomplicated; Z79.899 Other long term (current) drug therapy
CPT/HCPCS: 36415; 70551; 80048; 80076; 80307; 81001; 82140; 82550; 82553; 83735; 85025; 85610; 85730; 93005

== ENCOUNTER 2021-02-09 10:48 | Emergency (ER) | payer OTHER ==
[2021-02-09] MEDS ORDERED: ACETAMINOPHEN 325 MG TAB PO ONE (11:12)
--- NOTE | 2021-02-09 11:18 | Emergency Department Report ---
- General Chief Complaint: Medical Clearance Stated Complaint: COLD Time Seen by Provider: 02/09/21 11:10 Source: patient Mode of arrival: Ambulatory Limitations: No Limitations - History of Present Illness Initial Comments: 45-year-old -[place] male with a history of HIV presents to the emergency room complaining of 1 day history of fever chills body aches mild cough. Denies any loss of taste or smell. Not vaccinated. TheraFlu and BC powder yesterday. Reports he is compliant with his HIV medication is on Biktarvy. MD Complaint: fever, cough, rhinorrhea, nasal congestion Onset/Timin -: days(s) Severity scale (0 -10): 7 Consistency: constant - Related Data Home Medications Medication Instructions Recorded Confirmed Last Taken Emtricita/Rilpivirine/Tenof Df 1 each PO DAILY 11/05/13 11/05/13 Unknown [Complera Tablet] Previous Rx's Medication Instructions Recorded Last Taken Type Cyclobenzaprine [Flexeril 10mg] 10 mg PO TID PRN #14 tablet 11/05/13 Unknown Rx HYDROcodone/APAP 5-325 [[place] 1 each PO Q8HR PRN #14 tablet 11/05/13 Unknown Rx 5/325] methylPREDNISolone [Medrol Dose 4 mg PO DAILY #1 packet 11/05/13 Unknown Rx Juan J] Ondansetron [Zofran Odt] 4 mg SL Q6H PRN #8 tab.rapdis 03/01/14 Unknown Rx Ciprofloxacin HCl [Ciprofloxacin 500 mg PO Q12HR 10 Days #20 tab 12/29/19 Unknown Rx TAB] metroNIDAZOLE [Flagyl] 500 mg PO Q8HR #30 tab 12/29/19 Unknown Rx oxyCODONE /ACETAMINOPHEN [Percocet 1 tab PO Q4-6H PRN #25 tablet 12/29/19 Unknown Rx 5/325 mg] Meclizine [Antivert] 25 mg PO TID PRN #30 tablet 04/11/20 Unknown Rx Ondansetron [Zofran Odt] 4 mg PO Q8HR #20 tab.rapdis 04/11/20 Unknown Rx Allergies Allergy/AdvReac Type Severity Reaction Status Date / Time No Known Allergies Allergy Verified 02/09/21 10:49 ED Review of Systems ROS: Stated complaint: COLD Other details as noted in HPI ED Past Medical Hx - Past Medical History Hx HIV: Yes Additional medical history: Vertigo - Surgical History Past Surgical History?: No - Social History Substance Use Type: None - Medications Home Medications: Home Medications Medication Instructions Recorded Confirmed Last Taken Type Cyclobenzaprine [Flexeril 10mg] 10 mg PO TID PRN #14 tablet 11/05/13 Unknown Rx Emtricita/Rilpivirine/Tenof Df 1 each PO DAILY 11/05/13 11/05/13 Unknown History [Complera Tablet] HYDROcodone/APAP 5-325 [[place] 1 each PO Q8HR PRN #14 tablet 11/05/13 Unknown Rx 5/325] methylPREDNISolone [Medrol Dose 4 mg PO DAILY #1 packet 11/05/13 Unknown Rx Juan J] Ondansetron [Zofran Odt] 4 mg SL Q6H PRN #8 tab.rapdis 03/01/14 Unknown Rx Ciprofloxacin HCl [Ciprofloxacin 500 mg PO Q12HR 10 Days #20 tab 12/29/19 Unknown Rx TAB] metroNIDAZOLE [Flagyl] 500 mg PO Q8HR #30 tab 12/29/19 Unknown Rx oxyCODONE /ACETAMINOPHEN [Percocet 1 tab PO Q4-6H PRN #25 tablet 12/29/19 Unknown Rx 5/325 mg] Meclizine [Antivert] 25 mg PO TID PRN #30 tablet 04/11/20 Unknown Rx Ondansetron [Zofran Odt] 4 mg PO Q8HR #20 tab.rapdis 04/11/20 Unknown Rx ED Physical Exam - General Limitations: No Limitations ED Course Vital Signs 02/09/21 10:51 Temperature 100.8 F H Pulse Rate 91 H Respiratory 17 Rate Blood Pressure 120/82 O2 Sat by Pulse 94 Oximetry ED Medical Decision Making - Lab Data Result diagrams: 02/09/21 11:57 02/09/21 11:57 - Radiology Data Radiology results: report reviewed [facility] [address] [place] [address] XRay Report Signed Patient: LOVE CALLOWAY MR#: [id number] : 1975 Acct:[id number] Age/Sex: 45 / M A DM Date: 02/09/21 Loc: ED Attending Dr: Ordering Physician: SONNY VÁSQUEZ Date of Service: 12/17/21 Procedure(s): XR chest routine 2V Accession Number(s): [id number] cc: SONNY VÁSQUEZ Fluoro Time In Minutes: CHEST 2 VIEWS INDICATION: Cough fever HIV. COMPARISON: 11/05/2013 FINDINGS: Support devices: None. Heart: Within normal limits. Lungs/pleura: No acute air space or interstitial disease. No pneumothorax. Additional findings: None. IMPRESSION: No acute findings. Signer Name: Steven Barber Jr, MD Signed: 02/09/2021 11:31 AM Workstation Name: [id number] Transcribed By: TTR Dictated By: STEVEN BARBER JR, MD Electronically Authenticated By: STEVEN BARBER JR, MD Signed Date/Time: 02/09/211130 DD/ 30 TD/TT: Critical care attestation.: If time is entered above; I have spent that time in minutes in the direct care of this critically ill patient, excluding procedure time. ED Disposition Clinical Impression: Upper respiratory disease, Suspected COVID-19 virus infection Disposition: 01 HOME / SELF CARE / HOMELESS Is pt being admited?: No Does the pt Need Aspirin: No Condition: Stable Additional Instructions: Labs are stable chest x-ray is negative flu test is negative. I recommend getting checked for Covid. Please increase your fluids Tylenol or ibuprofen as needed for body aches and fever. Be sure to increase your fluids and advance your diet as tolerated. Quarantine until you know your Covid status. Referrals: PRIMARY MD CORNELIO [Primary Care Provider] - 3-5 Days ALAINA ROJAS MD [Staff Physician] - 3-5 Days Forms: Work/School Release Form(ED) Time of Disposition: 13:51
--- NOTE | 2021-02-09 11:36 | XRay Report ---
CHEST 2 VIEWS INDICATION: Cough fever HIV. COMPARISON: 11/05/2013 FINDINGS: Support devices: None. Heart: Within normal limits. Lungs/pleura: No acute air space or interstitial disease. No pneumothorax. Additional findings: None. IMPRESSION: No acute findings. Signer Name: Steven Barber Jr, MD Signed: 02/09/2021 11:31 AM Workstation Name: [id number]
[2021-02-09 12:36] LABS: Hematocrit 38.9 % (35.5-45.6); Mean Corpuscular HGB Conc 34 % (32-34); Mean Corpuscular Volume 99 fl (84-94); Platelet Count 124 K/mm3 (140-440); Red Blood Count 3.95 M/mm3 (3.65-5.03)
[2021-02-09 12:52] LABS: Alanine Aminotransferase 60 units/L (7-56); Albumin 3.9 g/dL (3.9-5); BUN/Creatinine Ratio 8; Blood Urea Nitrogen 9 mg/dL (9-20); Calcium 8.8 mg/dL (8.4-10.2); Hemolysis Index 5
[2021-02-09 13:43] LABS: Band Neutrophils # (Manual) 0.1 K/mm3; Total Cells Counted 100
[2021-02-09 13:44] LABS: Platelet Estimate Consistent w Auto; RBC Morphology Normal
[2021-02-09 16:19] VITALS: BP 126/80
== END 2021-02-09 16:20 | disposition home or self-care (01) ==
LOC: ED 10:48
DX: J06.9 Acute upper respiratory infection, unspecified (principal); Z20.822 Contact with and (suspected) exposure to COVID-19; Z79.899 Other long term (current) drug therapy
CPT/HCPCS: 36415; 71046; 80053; 85007; 85025; 87400; 99283